=== PATIENT | male | born 1965 | race Caucasian/White ===

== ENCOUNTER 2025-05-19 12:11 | Day surgery (SDC) | payer OTHER ==
[2025-05-19] MEDS ORDERED: HYDROCORTISONE SOD SUCCINATE 100 MG/2 ML VIAL IVPB PRN (12:40)
[2025-05-19] MEDS: IRON SUCROSE INJECTION 200 MG in SODIUM CHLORIDE 100 ML IVPB ONE (12:58)
[2025-05-19 14:51] VITALS: BP 112/68; PULSE 71; RESP 18; TEMP 97.7
== END 2025-05-19 14:54 | disposition home or self-care (01) ==
LOC: FINFUSION 12:11 → FM/S 12:11 → FINFUSION 14:54
PROVIDERS: ATTEND Family Medicine
PROC: 3E033GC Introduction of Other Therapeutic Substance into Peripheral Vein, Percutaneous Approach (ICD-10-PCS; principal; 2025-05-19)
DX: D50.9 Iron deficiency anemia, unspecified (principal)
CPT/HCPCS: 96365; J1756

== ENCOUNTER 2025-05-26 12:03 | Day surgery (SDC) | payer OTHER ==
[2025-05-26] MEDS: IRON SUCROSE INJECTION 200 MG in SODIUM CHLORIDE 100 ML IVPB ONE (12:33)
[2025-05-26] MEDS ORDERED: HYDROCORTISONE SOD SUCCINATE 100 MG/2 ML VIAL IVPB PRN (13:30)
[2025-05-26 13:42] VITALS: BP 100/56; PULSE 85; RESP 16; TEMP 98.1
== END 2025-05-26 14:17 | disposition home or self-care (01) ==
LOC: FINFUSION 12:03 → FM/S 12:03 → FINFUSION 14:17
PROVIDERS: ATTEND Family Medicine
PROC: 3E033GC Introduction of Other Therapeutic Substance into Peripheral Vein, Percutaneous Approach (ICD-10-PCS; principal; 2025-05-26)
DX: D50.9 Iron deficiency anemia, unspecified (principal)
CPT/HCPCS: 96365; J1756

== ENCOUNTER 2025-06-01 13:31 | Day surgery (SDC) | payer OTHER ==
[2025-06-01] MEDS ORDERED: HYDROCORTISONE SOD SUCCINATE 100 MG/2 ML VIAL IVPB PRN (13:39)
[2025-06-01] MEDS: IRON SUCROSE INJECTION 200 MG in SODIUM CHLORIDE 100 ML IVPB ONE (13:48)
[2025-06-01 15:15] VITALS: BP 125/65; PULSE 73; RESP 16; TEMP 98.2
== END 2025-06-01 15:17 | disposition home or self-care (01) ==
LOC: FM/S 13:31 → FINFUSION 13:31
PROVIDERS: ATTEND Family Medicine
PROC: 3E033GC Introduction of Other Therapeutic Substance into Peripheral Vein, Percutaneous Approach (ICD-10-PCS; principal; 2025-06-01)
DX: D50.9 Iron deficiency anemia, unspecified (principal)
CPT/HCPCS: 96365; J1756

== ENCOUNTER 2025-06-23 11:51 | Day surgery (SDC) | payer OTHER ==
[2025-06-23] MEDS: IRON SUCROSE INJECTION 200 MG in SODIUM CHLORIDE 100 ML IVPB ONE (12:33)
[2025-06-23] MEDS ORDERED: HYDROCORTISONE SOD SUCCINATE 100 MG/2 ML VIAL IVPUSH PRN (12:35)
[2025-06-23 14:19] VITALS: BP 108/69; PULSE 76; RESP 16; TEMP 97.9
== END 2025-06-23 14:22 | disposition home or self-care (01) ==
LOC: FINFUSION 11:51 → FM/S 11:53 → FINFUSION 14:22
PROVIDERS: ATTEND Family Medicine
PROC: 3E033GC Introduction of Other Therapeutic Substance into Peripheral Vein, Percutaneous Approach (ICD-10-PCS; principal; 2025-06-23)
DX: D50.9 Iron deficiency anemia, unspecified (principal)
CPT/HCPCS: 96365; J1756